=== PATIENT | male | born 1985 | race Caucasian/White ===

== ENCOUNTER 2025-01-24 06:24 | Day surgery (SDC) | payer BC, SELFPAY | END 2025-01-24 10:49 | disposition home or self-care (01) | LOC: GI 06:24 | PROVIDERS: ATTENDING PHYSICIAN Internal Medicine Gastroenterology | DX: K22.89 Other specified disease of esophagus (principal); K29.70 Gastritis, unspecified, without bleeding; K31.7 Polyp of stomach and duodenum; K31.89 Other diseases of stomach and duodenum; K21.00 Gastro-esophageal reflux disease with esophagitis, without bleeding | CPT/HCPCS: 43239; 88305; 88342 ==

== ENCOUNTER → 2025-02-28 19:37 | Outpatient (REF) | payer BC, SELFPAY | LOC: MRI 19:37 | PROVIDERS: ATTENDING PHYSICIAN Internal Medicine | DX: G44.031 Episodic paroxysmal hemicrania, intractable (principal); R04.0 Epistaxis | CPT/HCPCS: 70546; A9585 ==